=== PATIENT | male | born 1965 | race Caucasian/White ===

== ENCOUNTER 2016-06-03 15:54 | Emergency (ER) | payer OTHER ==
[~2016-06-03] VITALS: Ht 160 cm; Wt 61.7 kg
[2016-06-03 15:54] VITALS: BP 111/72
== END 2016-06-03 20:14 | disposition left against medical advice (07) ==
LOC: ER 16:09
DX: Z53.21 Procedure and treatment not carried out due to patient leaving prior to being seen by health care provider (principal)
CPT/HCPCS: A4606; Z7610

== ENCOUNTER 2024-07-22 13:50 | Emergency (ER) | payer OTHER ==
[~2024-07-22] VITALS: Ht 157.5 cm; Wt 59.0 kg
[2024-07-22] MEDS: IV NS 0.9% 1,000 ML BAG IV ONE (14:22)
[2024-07-22 14:44] LABS: BASOPHILS % (AUTO) 0.6 % (0.0-2.0); EOSINOPHILS % (AUTO) 0.6 % (0.0-6.0); HEMATOCRIT 34 % (39-51); HEMOGLOBIN 11.5 g/dL (13.5-17.5); LYMPHOCYTES # (AUTO) 0.5 K/uL (0.8-4.8); LYMPHOCYTES % (AUTO) 9.5 % (20.0-44.0); MEAN CORPUSCULAR HEMOGLOBIN 30 PG (26.0-33.0); MEAN CORPUSCULAR HGB CONC 34 g/dl (31.0-36.0); MEAN CORPUSCULAR VOLUME 89 fL (80-96); MONOCYTES # (AUTO) 0.1 K/uL (0.1-1.30); MONOCYTES % (AUTO) 1.9 % (2.0-12.0); NEUTROPHILS # (AUTO) 4.5 K/uL (1.8-8.9); NEUTROPHILS % (AUTO) 87.4 % (43.0-81.0); PLATELET COUNT (AUTO) 102 K/uL (150-450); RED BLOOD CELL COUNT(AUTO) 3.81 MIL/uL (4.5-6.0); RED CELL DISTRIBUTION WIDTH 16.6 % (11.5-15.0); WHITE BLOOD COUNT (AUTO) 5.2 K/uL (4.3-11.0)
[2024-07-22 14:52] LABS: CALCIUM, SERUM 8.2 mg/dL (8.5-10.1); CREATININE 0.8 mg/dL (0.6-1.3); POTASSIUM 4.3 mmol/L (3.5-5.1)
[2024-07-22] MEDS: IV NS 0.9% 500 ML BAG IV ONE (15:12)
[2024-07-22 17:19] LABS: LACTIC ACID 2.3 mmol/L (0.4-2.0)
[2024-07-22] MEDS ORDERED: AZIT250T PO (19:17)
[2024-07-22 19:45] VITALS: BP 112/61; TEMP 99; O2SAT 93
== END 2024-07-22 19:46 | disposition home or self-care (01) ==
LOC: ER 13:55
DX: K04.7 Periapical abscess without sinus (principal); J18.9 Pneumonia, unspecified organism; E11.9 Type 2 diabetes mellitus without complications; F17.200 Nicotine dependence, unspecified, uncomplicated; J44.0 Chronic obstructive pulmonary disease with (acute) lower respiratory infection; N40.0 Benign prostatic hyperplasia without lower urinary tract symptoms; Z90.49 Acquired absence of other specified parts of digestive tract
CPT/HCPCS: 99285; 96360; 70487; 71045; 96361; 85025; 80048; 87040; 83605; 36415; J7030; J7040